=== PATIENT | female | born 1995 | race Caucasian/White ===

== ENCOUNTER 2020-07-17 10:01 | Emergency (ER) | payer SELFPAY ==
[2020-07-18] MEDS ORDERED: ONDA4TAB12 PO (03:05)
[2020-07-18] MEDS ORDERED: FAMO-63 PO (03:05)
[2020-07-18] MEDS ORDERED: PROM25SU33 RC (05:55)
== END 2020-07-17 10:51 | disposition left against medical advice (07) ==
LOC: ER 10:01
DX: R10.9 Unspecified abdominal pain (principal); R11.10 Vomiting, unspecified; Z53.21 Procedure and treatment not carried out due to patient leaving prior to being seen by health care provider

== ENCOUNTER 2020-07-18 02:47 | Emergency (ER) | payer SELFPAY ==
[~2020-07-18] VITALS: Ht 172.7 cm; Wt 90.9 kg
[2020-07-18] MEDS ORDERED: ONDANSETRON PF 4 MG/2 ML VIAL. IVP ONE (03:00)
[2020-07-18] MEDS ORDERED: KETOROLAC 15 MG/ML VIAL. IVP ONE (03:00)
[2020-07-18] MEDS ORDERED: FAMOTIDINE 20 MG/2 ML VIAL IVP ONE (03:00)
[2020-07-18] MEDS ORDERED: IV NORMAL SALINE 1000ML BAG 1,000 ML IV SCH (03:00)
[2020-07-18] MEDS ORDERED: ONDA4TAB12 PO (03:05)
[2020-07-18] MEDS ORDERED: FAMO-63 PO (03:05)
--- NOTE | 2020-07-18 03:05 | PHYS DOC ---
Past Medical History Additional Past Medical Histor: Cyclic vomiting syndrome Past Surgical History: Cholecystectomy Smoking Status: Never Smoker Alcohol Use: None Drug Use: Marijuana General Adult EDM: Chief Complaint: NAUSEA/VOMITING/DIARRHEA HPI: HPI: Patient is a 25-year-old female with past medical history of cyclic vomiting syndrome presents with 24 hours worth of intractable nausea and vomiting. Patient reports she has had this issue for years. Reports symptoms began worse and therefore presents via EMS. Patient does report she had tried to present y esterday to the ER here at [facility] however patient felt she was being treated "rudely " and therefore decided to leave prior to medical screening exam. Denies . Reports last menstrual period 3 days ago. Denies known sick contacts. Review of Systems: Review of Systems: Constitutional: Denies fever or chills Eyes: Denies redness or eye pain HENT: Denies nasal congestion or sore throat Respiratory: Denies cough or shortness of breath Cardiovascular: Denies chest pain or palpitations GI: Denies abdominal pain; reports nausea and vomiting : Denies dysuria or hematuria Musculoskeletal: Denies back pain or joint pain Integument: Denies rash or skin lesions Neurologic: Denies headache, focal weakness or sensory changes Complete systems were reviewed and found to be within normal limits, except as documented in this note. Heart Score: C/O Chest Pain: N/A Current Medications: Current Medications Medications (Trade) Dose Ordered Sig/Jeanie Start Time Stop Time Status Last Admin Dose Admin Famotidine (Pepcid Vial) 20 mg 1X ONCE 07/18/20 03:00 07/18/20 03:01 UNV Ondansetron HCl (Zofran) 4 mg 1X ONCE 07/18/20 03:00 07/18/20 03:01 UNV Sodium Chloride 1,000 ml @ 1,000 mls/hr Q1H 07/18/20 03:00 07/18/20 03:59 UNV Allergies: Allergies: Allergies Coded Allergies Type Severity Reaction Last Updated Verified No Known Drug Allergies 07/18/20 No Physical Exam: PE: Constitutional: Well developed, well nourished, no acute distress, non-toxic appearance HENT: Normocephalic, atraumatic Eyes: Conjunctiva normal, no discharge Neck: Normal range of motion, supple Lungs & Thorax: No respiratory distress, equal chest rise and fall Abdomen: Soft, no tenderness, no guarding/rebound tenderness/distention Skin: Warm, dry, no erythema, no rash Back: No tenderness, no CVA tenderness Extremities: No tenderness, ROM intact, no edema Neurologic: Alert and oriented X 3, no focal deficits noted Psychologic: Affect normal, judgment normal EKG: EKG: [] Radiology/Procedures: Radiology/Procedures: [] Course & Med Decision Making: Course & Med Decision Making Pertinent Lab studies reviewed. (See chart for details) Patient presents with nausea and vomiting which she attributes to known cyclic vomiting syndrome. Symptomatic treatment provided including IV fluid hydration. Labs obtained and posted to chart. Hx of THC use. Possible cyclic vomiting from THC abuse. Hypokalemia addressed. Patient with interval improvement of symptoms. Patient stable for discharge with outpatient follow-up with PCP/GI. GI referral provided. Discussed findings and plan with patient, who acknowledges understanding and agreement. Waylon Disclaimer: Waylon Disclaimer: This electronic medical record was generated, in whole or in part, using a voice recognition dictation system. Departure Departure Impression: Primary Impression: Cyclic vomiting syndrome Disposition: HOME / SELF CARE / HOMELESS Condition: STABLE Referrals: NO PCP (PCP) TIKA BURRELL MD Patient Instructions: Clear Liquid Diet, [id number], Cyclic Vomiting Syndrome Scripts Promethazine Hcl (PROMETHAZINE HCL) 25 Mg Supp.rect 25 MG RC Q6H PRN for NAUSEA/VOMITING, #10 SUPP.RECT Prov: FLAVIA RODRIGUEZ DO 07/18/20 Ondansetron (ONDANSETRON ODT) 4 Mg Tab.rapdis 1 TAB PO PRN Q6-8HRS PRN for NAUSEA, #16 TAB Prov: FLAVIA RODRIGUEZ DO 07/18/20 Famotidine (PEPCID) 20 Mg Tablet 20 MG PO BID for 7 Days, #14 TAB Prov: FLAVIA RODRIGUEZ DO 07/18/20 FLAVIA RODRIGUEZ DO July 18, 2020 03:05
[2020-07-18] MEDS ORDERED: METOCLOPRAMIDE HCL 10 MG/2 ML VIAL. IVP ONE (03:30)
[2020-07-18] MEDS ORDERED: diphenhydrAMINE 50 MG/ML VIAL IVP ONE (03:30)
[2020-07-18 03:38] LABS: BASO % 0 % (0-3); EOS % 0 % (0-3); HEMATOCRIT 40.5 % (36.0-47.0); HEMOGLOBIN 13.7 g/dL (12.0-15.5); LYMPH # 0.8 x10^3/uL (1.0-4.8); LYMPH % 7 % (24-48); MEAN CORPUSCULAR HEMOGLOBIN 31 pg (25-35); MEAN CORPUSCULAR HGB CONC 34 g/dL (31-37); MEAN CORPUSCULAR VOLUME 92 fL (79-100); MONO # 0.4 x10^3/uL (0.0-1.1); MONO % 4 % (0-9); NEUT % 88 % (31-73); PLATELET COUNT 297 x10^3/uL (140-400); RED CELL DISTRIBUTION WIDTH 13.2 % (11.5-14.5); WHITE BLOOD COUNT 11.3 x10^3/uL (4.0-11.0)
[2020-07-18] MEDS ORDERED: HALOPERIDOL LACTATE 5 MG/ML VIAL. IM ONE (03:45)
[2020-07-18] MEDS ORDERED: PROMETHAZINE 25 MG SUPP.RECT. PR ONE (03:45)
[2020-07-18 03:48] LABS: CALCIUM 9.5 mg/dL (8.5-10.1); CREATININE 0.9 mg/dL (0.6-1.0); GFR 75.7; POTASSIUM 3.3 mmol/L (3.5-5.1)
[2020-07-18 03:53] LABS: ALBUMIN 4.3 g/dL (3.4-5.0); ALBUMIN/GLOBULIN RATIO 1.3 (1.0-1.7); MAGNESIUM 1.9 mg/dL (1.8-2.4); TOTAL BILIRUBIN 0.6 mg/dL (0.2-1.0); TOTAL PROTEIN 7.7 g/dL (6.4-8.2)
[2020-07-18] MEDS ORDERED: POTASSIUM CHLORIDE 10 MEQ TABLET.ER. PO ONE (04:30)
[2020-07-18 05:17] LABS: BILIRUBIN,URINE NEGATIVE (NEG); CLARITY,URINE CLOUDY; COLOR,URINE YELLOW; NITRITE,URINE NEGATIVE (NEG); PROTEIN,URINE 30 mg/dL (NEG-TRACE); UROBILINOGEN,URINE 0.2 mg/dL (0.2 mg/dL)
[2020-07-18 05:26] LABS: AMPHETAMINE/METHAMPHETAMINE NEG (NEG); BARBITURATES NEG (NEG); BENZODIAZEPINES NEG (NEG); CANNABINOIDS POS (NEG); COCAINE NEG (NEG); METHADONE NEG (NEG); OPIATES NEG (NEG); PHENCYCLIDINE NEG (NEG)
[2020-07-18 05:28] LABS: BACTERIA,URINE FEW /HPF (0-FEW)
[2020-07-18 05:51] VITALS: BP 102/63
[2020-07-18] MEDS ORDERED: PROM25SU33 RC (05:55)
[2020-07-18 09:55] LABS: % BANDS 2 % (0-9); % LYMPHS 8 % (24-48); % MONOS 3 % (0-10); % SEGS 87 % (35-66); PLT ESTIMATE ADEQUATE (ADEQUATE)
[2020-07-19] MEDS ORDERED: HALOPERIDOL LACTATE 5 MG/ML VIAL. IVP ONE (07:00)
== END 2020-07-18 06:20 | disposition home or self-care (01) ==
LOC: ER 02:47
DX: R11.15 Cyclical vomiting syndrome unrelated to migraine (principal)
CPT/HCPCS: 36415; 80053; 80307; 81001; 81025; 83690; 83735; 85007; 85025; 96361; 96374; 96375; 99285; J1200; J1885; J2405; J2765; J3490; J7030

== ENCOUNTER 2020-07-19 05:59 | Emergency (ER) | payer SELFPAY ==
[~2020-07-19] VITALS: Ht 172.7 cm; Wt 90.9 kg
[~2020-07-19 05:59] MED LIST: FAMO-63 PO; ONDA4TAB12 PO; PROM25SU33 RC
[2020-07-19] MEDS ORDERED: ONDANSETRON PF 4 MG/2 ML VIAL. IM ONE (06:30)
[2020-07-19 06:45] VITALS: BP 121/97
[2020-07-19] MEDS ORDERED: IV NORMAL SALINE 1000ML BAG 1,000 ML IV ONE (07:00)
[2020-07-19] MEDS ORDERED: ONDANSETRON PF 4 MG/2 ML VIAL. IVP ONE (07:00)
[2020-07-19] MEDS ORDERED: HALOPERIDOL LACTATE 5 MG/ML VIAL. IVP ONE (07:30)
--- NOTE | 2020-07-19 07:58 | PHYS DOC ---
Past Medical History Past Medical History: Other Additional Past Medical Histor: Cyclic vomiting syndrome Past Surgical History: Cholecystectomy Smoking Status: Never Smoker Alcohol Use: None Drug Use: Marijuana General Adult EDM: Chief Complaint: NAUSEA/VOMITING/DIARRHEA HPI: HPI: 25-year-old female presents to the ED with nausea and nonbloody nonbilious vomiting states doing ice packs marijuana but last use was 3 weeks ago. ED staff/multiple rns report patient was recently seen in the ED, prior was yelling in the ed waiting room. Pt states haldol helps and later requests capsaicin. Review of Systems: Review of Systems: Constitutional: Denies fever or chills. [] Eyes: Denies change in visual acuity. [] HENT: Denies nasal congestion or sore throat. [] Respiratory: Denies cough or shortness of breath. [] Cardiovascular: Denies chest pain or edema. [] GI: Denies a bloody stools or diarrhea. [] : Denies dysuria or hematuria Musculoskeletal: Denies back pain or joint pain. [] Integument: Denies rash or diaphoresis Neurologic: Denies headache, focal weakness or sensory changes. [] Endocrine: Denies polyuria or polydipsia. [] Lymphatic: Denies swollen glands. [] Psychiatric: Denies depression or anxiety. [] Heart Score: C/O Chest Pain: No Risk Factors: Risk Factors: DM, Current or recent (<one month) smoker, HTN, HLP, family history of CAD, obesity. Risk Scores: Score 0 - 3: 2.5% MACE over next 6 weeks - Discharge Home Score 4 - 6: 20.3% MACE over next 6 weeks - Admit for Clinical Observation Score 7 - 10: 72.7% MACE over next 6 weeks - Early Invasive Strategies Current Medications: Current Medications Medications (Trade) Dose Ordered Sig/Jeanie Start Time Stop Time Status Last Admin Dose Admin Capsaicin (Zostrix) 1 jaguar TID 07/19/20 09:00 Haloperidol Lactate (Haldol Inj) 5 mg 1X ONCE 07/19/20 07:30 07/19/20 07:31 DC 07/19/20 06:53 5 MG Ondansetron HCl (Zofran) 4 mg 1X ONCE 07/19/20 07:00 07/19/20 07:01 DC 07/19/20 06:30 4 MG Sodium Chloride 1,000 ml @ 1,000 mls/hr 1X ONCE 07/19/20 07:00 07/19/20 07:59 07/19/20 06:53 1,000 MLS/HR Allergies: Allergies: Allergies Coded Allergies Type Severity Reaction Last Updated Verified No Known Drug Allergies 07/18/20 No Physical Exam: PE: Constitutional: Well developed, well nourished, no acute distress, non-toxic appearance. HENT: Normocephalic, atraumatic, Eyes: EOMI, conjunctiva normal, no discharge. Neck: Normal range of motion, supple, Cardiovascular: S1/2 present, regular rhythm Lungs & Thorax: Speaking in full sentences, bilateral equal chest rise, no tachypnea or increased work of breathing, yellow emesis in basin-rn reports pt drinking water in ed and then vomiting despite our efforts, Abdomen: soft, no tenderness, no rigidity or guarding Skin: Warm, dry, no erythema, no rash. [] Back: No tenderness, no CVA tenderness. [] Extremities: No tenderness, no cyanosis, no lower extremity edema Neurologic: Alert and oriented X 3, normal motor function, normal sensory function, no focal deficits noted. [] Psychologic: Affect normal, judgement normal, mood normal. [] Current Patient Data: Labs: Laboratory Tests Test 07/19/20 06:06 POC Urine HCG, Qualitative Hcg negative (Negative) Vital Signs: Vital Signs Date Time Temp Pulse Resp B/P (MAP) Pulse Ox O2 Delivery O2 Flow Rate FiO2 07/19/20 06:00 98.6 26 102/63 (76) 98 Room Air 98.6 EKG: EKG: [] Radiology/Procedures: Radiology/Procedures: [] Course & Med Decision Making: Course & Med Decision Making Pertinent Labs and Imaging studies reviewed. (See chart for details) Concern for cannabinoid hyperemesis syndrome. Patient was given Haldol and states she wants to go home to have a hot shower. RN reports pt is drinking water in ed. Patient is requesting to leave the ED against medical advice. Life/limb-threatening differential includes but is not limited to, acute coronary syndrome/myocardial infarction, Boerhaave's, DKA, gastrointestinal bleeding, intracranial hemorrhage, ischemic bowel, meningitis, sepsis, surgical abdomen (AAA), toxidrome (drug over/overdose/carbon monoxide, etc), ovarian/testicular torsion, trauma, or infection/sepsis. The patient has decided to leave our facility against medical advice. I have assessed patient's ability to make informed decision and feel the patient has the capacity to comprehend information regarding the current medical condition and appreciates the impact of the disease or condition and the consequences of various options for treatment, including foregoing treatment. The patient possesses the ability to evaluate all treatment options, comparing the risks and benefits of each option, communicate his or her choice in a consistent manner over time, and is able to make rational choices. I explained to the patient further testing, treatment, and evaluation I would like to perform in the emergency department visit as well as any possible alternatives that can be accomplished in a timely manner. I have outlined the possible risks of foregoing any or all of these interventions and the patient understands and acknowledges that the decision to leave may result in undesirable consequences such as , permanent disability, and/or loss of current lifestyle. Even though leaving AMA is not ideal, I have instructed the patient to follow any discharge instructions given, take any medications prescribed, and resume care as soon as possible with another provider. This conversation was witnessed by another member of the emergency department staff and we clearly communicated the patient is welcome to return anytime to continue care at our facility. Waylon Disclaimer: Waylon Disclaimer: This electronic medical record was generated, in whole or in part, using a voice recognition dictation system. Departure Departure Impression: Primary Impression: Left against medical advice Disposition: LEFT AGAINST MEDICAL ADVICE Admitting Physician: MARQUISE Condition: STABLE KANNAN BELLE DO July 19, 2020 07:58
[2020-07-19] MEDS ORDERED: CAPSAICIN 0.025% TOPICAL CREAM 60GM TUBE. TP SCH (09:00)
--- NOTE | 2020-07-19 17:42 | EKG ---
[facility] [address] [place] [id number] Test Date: 2020-07-19 Test Time: 06:54:27 Pat Name: MIKAELA QUIROZ Department: Room: Gender: F Model Technician: : [id number] Requested By: KANNAN BELLE Order Number: [id number] Reading MD: Measurements Intervals [place] Rate: 56 P: [place]: QRS: 52 QRSD: 96 T: 28 QT: 390 QTc: 379 Interpretive Statements IRREGULAR RHYTHM, NO P-WAVE FOUND OTHERWISE NORMAL ECG RI6.02 No previous ECG available for comparison
== END 2020-07-19 07:42 | disposition left against medical advice (07) ==
LOC: ER 05:59
DX: R11.2 Nausea with vomiting, unspecified (principal); Z90.49 Acquired absence of other specified parts of digestive tract
CPT/HCPCS: 81025; 93005; 96361; 96374; 96375; 99285; J1630; J2405; J7030